=== PATIENT | male | born 1950 | race Two or more races ===

== ENCOUNTER 2018-05-26 05:28 | Day surgery (SDC) | payer OTHER ==
[2018-05-23 15:45] VITALS: BMI 27.6
[2018-05-26] MEDS ORDERED: oxyCODONE HCL 5 MG TABLET PO PRN (07:58)
[2018-05-26] MEDS ORDERED: MIDAZOLAM HCL 2 MG/2 ML SINGLE DOSE VIAL ONE (11:27)
--- NOTE | 2018-05-26 12:23 | OP ---
Operative Note - Note: Operative Date: 05/26/18 Pre-Operative Diagnosis: Right renal stone Operation: Right ESWL Post-Operative Diagnosis: Same as Pre-op Surgeon: Robert Silva Anesthesia: Fractional Estimated Blood Loss (mls): 0 Operative Report Dictated: Yes
[2018-05-26 13:02] VITALS: BP 115/75; TEMP 98.2
[2018-05-26 14:13] VITALS: PULSE 72
--- NOTE | 2018-05-27 08:00 | OP ---
DATE OF OPERATION: 05/26/2018 PREOPERATIVE DIAGNOSIS: Right renal stone. POSTOPERATIVE DIAGNOSIS: Right renal stone. PROCEDURE: Right extracorporeal shock wave lithotripsy. ATTENDING: Aubree Joe MD ANESTHESIA: Fractional. OPERATION FOLLOWS: The patient was brought in the operating room, placed in supine position on the operating room table. Ultrasonography and fluoroscopy were performed. A right 5-mm mid pole stone was identified. Anesthesia and preoperative antibiotics were then administered. Shock wave lithotripsy was performed. Excellent fragmentation of the stone was noted under real time ultrasonography and fluoroscopy. There were no complications noted. The disposition of the patient was to the recovery room. AUBREE JOE M.D. [id number]
== END 2018-05-26 13:45 | disposition home or self-care (01) ==
LOC: JASU-SURG 05:28 → EDSEX 10:15 → JASU-SURG 13:45
PROVIDERS: ATTEND Urology
PROC: 0TF3XZZ Fragmentation in Right Kidney Pelvis, External Approach (ICD-10-PCS; principal; 2018-05-26 10:15)
DX: N20.0 Calculus of kidney (principal)
CPT/HCPCS: 94760